=== PATIENT | male | born 1960 | race Caucasian/White ===

== ENCOUNTER 2017-10-13 08:30 | Emergency (ER) | payer BC ==
[~2017-10-13] VITALS: Ht 147.3 cm; Wt 39.8 kg
[~2017-10-13 08:30] MED LIST: AZULFIDINE PO; PHENERGAN 25 TA25 MG PO; PHENERGAN25 MG RC; PREDNISONE10 MG PO
[2017-10-13] MEDS ORDERED: LIALDA 1.2 GM1.2 GM PO (09:05)
[2017-10-13 09:08] LABS: MEAN CELL VOLUME 86 fl (80.0-100.0); MEAN CORPUSCULAR HGB CONC 32 g/dl (33.0-37.0); PLATELET COUNT 590 K/mm3 (130-400); RED BLOOD COUNT 3.95 M/mm3 (4.20-5.60); REDCELL DISTRIBUTION WIDTH-CV 13.8 % (11.5-14.5)
[2017-10-13 09:13] LABS: HEMATOCRIT 33.8 % (42.0-52.0); HEMOGLOBIN 10.8 g/dl (13.5-18.0); MEAN CORPUSCULAR HEMOGLOBIN 27 pg (27.0-31.0)
[2017-10-13 09:17] LABS: BILIRUBIN,TOTAL 0.3 mg/dL (0.0-1.0); CALCIUM 8.2 mg/dL (8.4-10.2); CREATININE, serum 0.7 mg/dL (0.66-1.25); POTASSIUM 3.8 mmol/L (3.4-5.0); TOTAL PROTEIN 7.2 gm/dL (6.4-8.2)
[2017-10-13 09:34] LABS: C-REACTIVE PROTEIN 16.6 mg/dL (0.0-0.9)
[2017-10-13 10:05] LABS: BAND 25 % (0-10); LYMPHOCYTE 13 % (20.0-51.0); NEUTROPHILS 58 % (42.0-75.2); PLATELET ESTIMATE INCREASED (NORMAL)
[2017-10-13] MEDS ORDERED: NORCO 325 MG-51 TAB PO (11:56)
[2017-10-13] MEDS ORDERED: ZOFRAN 4MG T4 MG/TAB PO (11:56)
[2017-10-13] MEDS ORDERED: PREDNISONE20 MG PO (11:56)
[2017-10-13] MEDS ORDERED: FLAGYL500 MG PO (11:56)
[2017-10-13] MEDS ORDERED: CIPRO 500MG TA500 MG PO (11:56)
[2017-10-13 12:30] VITALS: BP 131/80; PULSE 81; TEMP 97.8
== END 2017-10-13 12:35 | disposition home or self-care (01) ==
LOC: COL.ER 08:30
PROVIDERS: Emergency Medicine
DX: K51.90 Ulcerative colitis, unspecified, without complications (principal); R11.2 Nausea with vomiting, unspecified
CPT/HCPCS: J7030; J7512; Q9967

== ENCOUNTER 2017-11-02 13:23 | Inpatient (IN) | payer BC ==
[~2017-11-02] VITALS: Ht 152.4 cm; Wt 40.0 kg
[~2017-11-02 13:23] MED LIST changes: +CIPRO 500MG TA500 MG PO; +FLAGYL500 MG PO; +LIALDA 1.2 GM1.2 GM PO; +NORCO 325 MG-51 TAB PO; +PREDNISONE20 MG PO; +ZOFRAN 4MG T4 MG/TAB PO
[2017-11-02 14:04] LABS: BASO % 0.3 % (0.0-2.0); EOS % 0.2 % (0-4.0); GRAN # 10.4 (1.4-6.5); GRAN % 81.4 % (42.2-75.2); LYMPH # 0.9 (1.2-3.4); LYMPH % 7.4 % (20.0-51.0); MEAN CELL VOLUME 86 fl (80.0-100.0); MEAN CORPUSCULAR HGB CONC 32 g/dl (33.0-37.0); MEAN PLATELET VOLUME 8.9 fl (7.4-10.4); MONO # 1.3 (0.1-0.6); MONO % 10.2 % (1.7-9.3); PLATELET COUNT 493 K/mm3 (130-400); RED BLOOD COUNT 3.61 M/mm3 (4.20-5.60); REDCELL DISTRIBUTION WIDTH-CV 16.1 % (11.5-14.5)
[2017-11-02 14:09] LABS: INR 1.2 (0.8-3.0); PROTHROMBIN TIME 13.8 SECONDS (9.7-12.8)
[2017-11-02 14:12] LABS: ALANINE AMINOTRANSFERASE 28 U/L (21-72); ALBUMIN 3.2 gm/dL (3.5-5.0); ALKALINE PHOSPHATASE 86 U/L (50-136); ANION GAP 10 mmol/L (7-16); AST,SGOT 31 U/L (15-37); BILIRUBIN,TOTAL 0.5 mg/dL (0.0-1.0); BLOOD UREA NITROGEN 14 mg/dL (9-20); CALCIUM 8.6 mg/dL (8.4-10.2); CARBON DIOXIDE 25 mmol/L (22-30); CHLORIDE 101 mmol/L (98-107); CREATININE, serum 0.56 mg/dL (0.66-1.25); GLUCOSE 139 mg/dL (74-106); PARTIAL THROMBOPLASTIN TIME 24.5 SECONDS (26.0-37.0); SODIUM 135 mmol/L (137-145); TOTAL PROTEIN 7.8 gm/dL (6.4-8.2)
[2017-11-02 14:13] LABS: HEMATOCRIT 31.1 % (42.0-52.0); HEMOGLOBIN 9.8 g/dl (13.5-18.0); MEAN CORPUSCULAR HEMOGLOBIN 27 pg (27.0-31.0)
[2017-11-02 14:24] LABS: TROPONIN-I < 0.012 ng/mL (0.000-0.034)
[2017-11-02 17:10] VITALS: BP 99/68; PULSE 163; TEMP 97
[2017-11-02 17:45] VITALS: BP 94/64; PULSE 106; TEMP 97.2
[2017-11-02 20:00] VITALS: BP 104/65; PULSE 106; TEMP 97
[2017-11-03] VITALS: BP 102/65; PULSE 93
[2017-11-03 04:00] VITALS: BP 88/59; PULSE 96
[2017-11-03 08:05] VITALS: BP 100/58; PULSE 90
[2017-11-03] MEDS ORDERED: CORDARONE200 MG/TAB PO (12:02)
== END 2017-11-03 14:14 | disposition home or self-care (01) | DRG 309 ==
LOC: COL.ER 13:23 → ICU 16:12
PROVIDERS: Physician Assistant
PROC: 5A2204Z Restoration of Cardiac Rhythm, Single (ICD-10-PCS; principal; 2017-11-02)
DX: I48.92 Unspecified atrial flutter (principal); K51.90 Ulcerative colitis, unspecified, without complications; D64.9 Anemia, unspecified
CPT/HCPCS: 99223-AI; 99239; J1650; J2250; J2704; J3010; J7030